=== PATIENT | female | born 1990 | race Caucasian/White ===

== ENCOUNTER → 2018-09-01 15:09 | Outpatient (CLI) | payer MEDICAID, SELFPAY ==
[2018-09-01 14:22] VITALS: BMI 30.7
== END ==
PROVIDERS: Referring Provider Nurse Practitioner Women's Health; Visit Provider Nurse Practitioner Women's Health
DX: Z11.3 Encounter for screening for infections with a predominantly sexual mode of transmission (principal)
CPT/HCPCS: 87491; 87591

== ENCOUNTER → 2018-09-02 16:08 | Outpatient (CLI) | payer MEDICAID, SELFPAY ==
[2018-09-01 14:22] VITALS: BMI 30.7
[2018-09-02 19:27] LABS: Chlamydia Trachomatis by PCR Negative (Negative); Neisserai gonorrhoeae by PCR Negative (Negative); Probe Check PASS; Sample Adequacy Control PASS; Specimen Processing Control PASS
== END ==
PROVIDERS: Referring Provider Nurse Practitioner Women's Health; Visit Provider Nurse Practitioner Women's Health
DX: A64 Unspecified sexually transmitted disease (principal)
CPT/HCPCS: 87491; 87591

== ENCOUNTER → 2018-11-22 11:03 | Outpatient (CLI) | payer BC, MEDICAID, SELFPAY ==
[2018-09-01 14:22] VITALS: BMI 30.7
[2018-11-22 12:38] LABS: Absolute Lymphocyte Count 2.96 X10^3/ul (0.83-4.51); Absolute Neutrophil Count 8.3 X10^3/uL (2.0-7.7); Basophil# 0.05 X10^3/uL; Basophil% 0.4 % (0-1); Eosinophil# 0.19 X10^3/uL; Eosinophils% 1.5 % (0-5); Hematocrit 38.7 % (37-47); Hemoglobin 12.3 g/dl (12.0-15.0); Lymphocyte # 2.96 X10^3/ul (4.0); Lymphocyte % 23.8 % (19-41); Mean Corp Hgb Conc 31.8 g/gl (32-36); Mean Corpuscular Hgb 26.6 pg (27.0-32.0); Mean Corpuscular Volume 83.8 fL (81-99); Monocyte% 7.2 % (0-10); Neutrophil # 8.33 X10^3/uL (2.7-7.7); Neutrophil % 66.9 % (47-70); Platelet Count 465 K/mm3 (150-450); RBC Distribution Width SD 42.1 fl (35.1-43.9); Red Blood Count 4.62 M/mm3 (4.2-5.4); White Blood Count 12.5 K/mm3 (4.4-11.0)
[2018-11-22 12:47] LABS: POSITIVE COUNT NO; POSITIVE DIFFERENTIAL NO; POSITIVE MORPHOLOGY NO
[2018-11-22 12:53] LABS: ALB/GLOB Ratio 0.7 RATIO (0.9-2.4); AST(SGOT) 13 U/L (15-37); Alanine Aminotransfer ALT/SGPT 14 U/L (13-56); Alkaline Phosphatase 96 U/L (45-117); Anion Gap 10 (5-15); BUN 7 mg/dL (7-18); BUN/Creat Ratio 9.3 RATIO (10-20); Calcium,Total 8.9 mg/dL (8.5-10.1); Chloride 106 mmol/L (98-107); Creatinine, Serum 0.75 mg/dL (0.55-1.02); EST Glomerular Filtration Rate 99 mL/min (>60); Est Glom Filt Rate - Afr Amer 119 mL/min (>60); Globulin 4.1 g/dL (2.2-4.2); Glucose 80 mg/dL (74-106); Potassium 3.9 mmol/L (3.5-5.1); Protein, Total 7.1 g/dL (6.4-8.2); Sodium Level 138 mmol/L (136-145); T4 Free Direct 0.96 ng/dL (0.76-1.46); Thyroid Stim Hormone (TSH) 1.82 uIU/mL (0.358-3.74)
== END ==
PROVIDERS: Family Provider Family Medicine; PCP Family Medicine; Visit Provider Family Medicine
DX: Z51.81 Encounter for therapeutic drug level monitoring (principal); F32.9 Major depressive disorder, single episode, unspecified; F41.9 Anxiety disorder, unspecified
CPT/HCPCS: 36415; 80053; 84439; 84443; 85025

== ENCOUNTER → 2019-01-13 09:02 | Outpatient (CLI) | payer MEDICAID, SELFPAY ==
[2018-09-01 14:22] VITALS: BMI 30.7
[2019-01-13 10:16] LABS: Absolute Lymphocyte Count 3.08 X10^3/uL (0.83-4.51); Basophil# 0.11 X10^3/uL; Basophil% 0.8 % (0-1); Eosinophil# 0.16 X10^3/uL; Eosinophils% 1.1 % (0-5); Hemoglobin 12.7 g/dL (12.0-15.0); Lymphocyte # 3.08 X10^3/ul (4.0); Lymphocyte % 21.4 % (19-41); Mean Corp Hgb Conc 31.8 g/dL (32-36); Mean Corpuscular Hgb 27.2 pg (27.0-32.0); Mean Corpuscular Volume 85.7 fL (81-99); Mean Platelet Vol. 9.7 fl (6.2-12.0); Monocyte# 0.99 X10^3/uL; Monocyte% 6.9 % (0-10); NRBC Flagged by Analyzer 0 % (0-5); Neutrophil # 9.99 X10^3/uL (2.7-7.7); Neutrophil % 69.2 % (47-70); Platelet Count 459 K/mm3 (150-450); RBC Distribution Width CV 14.3 % (11.6-14.6); RBC Distribution Width SD 44.3 fl (35.1-43.9); Red Blood Count 4.67 M/mm3 (4.2-5.4); White Blood Count 14.4 K/mm3 (4.4-11.0)
[2019-01-13 11:16] LABS: Thyroid Stim Hormone (TSH) 2.05 uIU/mL (0.358-3.74)
== END ==
PROVIDERS: Family Provider Family Medicine; PCP Family Medicine; Referring Provider Nurse Practitioner Women's Health; Visit Provider Nurse Practitioner Women's Health
DX: L65.9 Nonscarring hair loss, unspecified (principal)
CPT/HCPCS: 36415; 84443; 85025

== ENCOUNTER 2019-03-17 20:43 | Emergency (ER) | payer MEDICAID, SELFPAY ==
[2018-09-01 14:22] VITALS: BMI 30.7
[2019-03-17 20:44] VITALS: BP 172/117; PULSE 138; RESP 18; TEMP 36.6; O2SAT 95; BMI 50.1
--- NOTE | 2019-03-17 21:21 | RAD_ITS ---
HISTORY: COUGH, CONGESTION EXAM: XR Chest 2 Views: COMPARISON: None FINDINGS: # of images incl. paperwork: 2 Lungs are clear. Heart is not enlarged. Bones are normal. Pulmonary vascularity is distinct. No effusions. RAD/Chest PA and Lateral IMPRESSION: Normal. at 2208 Reported and signed by: Krishna Salazar MD Electronically Signed: Krishna Salazar MD at 22:07 EDT Tel , Service support ,
[2019-03-17 21:37] LABS: Absolute Lymphocyte Count 2.81 X10^3/uL (0.83-4.51); Absolute Neutrophil Count 8.1 X10^3/uL (2.0-7.7); Basophil# 0.09 X10^3/uL; Basophil% 0.7 % (0-1); Eosinophil# 0.17 X10^3/uL; Eosinophils% 1.4 % (0-5); Hematocrit 41.2 % (37-47); Lymphocyte # 2.81 X10^3/ul (4.0); Mean Corp Hgb Conc 31.6 g/dL (32-36); Mean Corpuscular Hgb 27.4 pg (27.0-32.0); Mean Corpuscular Volume 86.9 fL (81-99); Mean Platelet Vol. 9.8 fl (6.2-12.0); Monocyte# 0.99 X10^3/uL; Monocyte% 8.1 % (0-10); NRBC Flagged by Analyzer 0 % (0-5); Neutrophil # 8.11 X10^3/uL (2.7-7.7); Neutrophil % 66.3 % (47-70); Platelet Count 457 K/mm3 (150-450); RBC Distribution Width CV 13.6 % (11.6-14.6); RBC Distribution Width SD 43.3 fl (35.1-43.9); Red Blood Count 4.74 M/mm3 (4.2-5.4); White Blood Count 12.2 K/mm3 (4.4-11.0)
[2019-03-17] MEDS: 0.9% Normal Saline 1,000 ML 1000 ML IV (21:38)
[2019-03-17 21:52] LABS: Anion Gap 9 (5-15); BUN 8 mg/dL (7-18); BUN/Creat Ratio 9.6 RATIO (10-20); Calcium,Total 8.9 mg/dL (8.5-10.1); Chloride 105 mmol/L (98-107); Creatinine, Serum 0.83 mg/dL (0.55-1.02); EST Glomerular Filtration Rate 88 mL/min (>60); Est Glom Filt Rate - Afr Amer 106 mL/min (>60); Glucose 141 mg/dL (74-106); Potassium 3.9 mmol/L (3.5-5.1); Sodium Level 138 mmol/L (136-145)
[2019-03-17 22:17] LABS: Bacteria 0 SEEN /hpf (None Seen); Red Blood Cells-Urine 0 SEEN /hpf (0-5)
[2019-03-17 22:34] LABS: Internal QC Validated? YES +Cl - CLEAR BKGD; Pregnancy, Urine Negative Negative
[2019-03-17 22:35] LABS: Color, Urine Yellow (Yellow); Glucose, Dipstick Normal (Normal); Ketone-Dipstick Negative (Negative); Leukocyte Esterase-Dipstick 25 /ul (Negative); Nitrite-Dipstick Negative (Negative); Occult Blood-Urine Negative /ul (Negative); Protein-Dipstick 15 mg/dl (Negative); Urine Bilirubin Dipstick Negative (Negative); Urine Clarity Sl. Cloudy (Clear); Urine Urobilinogen Normal (Normal)
[2019-03-17 22:36] LABS: Squamous Epithelial Cells - UA 0-5 SEEN /hpf (5-10)
[2019-03-17 22:37] LABS: Mucous, Urine RARE /hpf (<or=2+)
[2019-03-17 22:38] LABS: Hyaline Cast 0 SEEN /lpf (0-5); White Blood Cells 0-5 SEEN /hpf (0-5)
[2019-03-17 22:45] VITALS: PULSE 118; RESP 18
--- NOTE | 2019-03-17 23:04 | ED.VISSUMM ---
- ER Visit Summary Date of Service: 03/17/19 Chief Complaint: Shortness of breath History of Present Illness: The patient is a 28 F who presents with shortness of breath that has been getting worse since yesterday. Patient states she has been having a cough. Patient denies any sputum production. Patient admits to some left ear pain. Patient states she has some sharp pain in her chest. Patient states this is worse with coughing. Patient states nothing improves her pain. Patient denies any fevers or chills. Patient denies any rhinorrhea or sore throat. Patient states she has an appoint with her primary care physician for evaluation of her tachycardia this week. Physical Examination: Vital signs are stable except for tachycardia of 118. Patient is afebrile. Patient is in no acute distress. Oral mucosa is pink and moist. Neck is supple. Trachea is midline. There is no JVD noted. Heart was regular and tachycardic. Lungs are clear and equal bilaterally. Abdomen is soft. Bowel sounds are normal. There is no tenderness. Cranial nerves II through XII are intact. There are no focal motor or sensory deficits noted. Test Results: CBC showed a slight leukocytosis of 12.2. Basic metabolic profile was normal. Urinalysis does not show any evidence of urinary tract infection. Urine hCG was negative. PA and lateral chest x-ray was obtained. There is no acute cardiopulmonary process. Emergency Department Course and Treatment: Patient was feeling better on reevaluation. Patient was advised of her results. Patient was instructed to follow-up with her primary care physician in 5 to 7 days. Patient understood and was agreeable with the plan. All questions were answered. Disposition: Discharge home Impression: Viral upper respiratory infection This note was generated with [employer] dictation software. It may contain incorrect words, spelling, and punctuation that were not noted in review of the chart prior to signing ED Disposition - Plan for ED Patient: Disposition: Home or Assisted Living Diagnosis: Viral upper respiratory tract infection with cough Instructions: URI, Viral, No Abx (Adult) Referrals: Kris Patterson MD [Primary Care Provider] - 3-5 Days
[2019-03-17 23:25] VITALS: BP 153/83; PULSE 108; RESP 16; O2SAT 99
== END 2019-03-17 23:25 | disposition home or self-care (01) ==
PROVIDERS: Emergency Provider Emergency Medicine; Family Provider Family Medicine; PCP Family Medicine
DX: J06.9 Acute upper respiratory infection, unspecified (principal); E66.9 Obesity, unspecified
CPT/HCPCS: 71046; 80048; 81001; 81025; 85025; 96360; 99284; J7030; A4216

== ENCOUNTER → 2019-03-21 10:47 | Outpatient (CLI) | payer MEDICAID, SELFPAY ==
[2019-03-17 20:44] VITALS: BMI 50.1
== END ==
PROVIDERS: Family Provider Family Medicine; PCP Family Medicine; Visit Provider Family Medicine
DX: R50.9 Fever, unspecified (principal); R06.2 Wheezing
CPT/HCPCS: 87633

== ENCOUNTER 2019-07-10 21:34 | Emergency (ER) | payer MEDICAID, SELFPAY ==
[2019-07-10 21:35] VITALS: BP 165/112; PULSE 142; RESP 20; TEMP 37.4; O2SAT 98; BMI 49.8
[2019-07-10 21:56] VITALS: BP 164/99; PULSE 138; PULSE 144; RESP 20; TEMP 37.4; O2SAT 96; O2SAT 99
--- NOTE | 2019-07-10 22:04 | EKG12_ITS ---
Test Reason : SOB Blood Pressure : / mmHG Vent. Rate : 123 BPM Atrial Rate : 123 BPM P-R Int : 128 ms QRS Dur : 080 ms QT Int : 304 ms P-R-T Axes : 063 078 041 degrees QTc Int : 435 ms Sinus tachycardia Otherwise normal ECG Confirmed by RHETT GUERRERO, ANDERSON ([id number]), publishing editor LILLY RAMOS ([id number]) on 07/12/2019 8:03:37 AM Referred By: ELIESER/SHINE Confirmed By:ANDERSON DELANEY MD
--- NOTE | 2019-07-10 22:06 | ED.DCSUM_ITS ---
History of Present Illness Informant: Patient Onset: Today Worsened by: Coughing, Exertion Relieved by: Nothing Associated Symptoms: Green sputum, Rhinorrhea, Sweats. Negative for: Fever, Sore throat Narrative: Patient is a 28-year-old female with history of bipolar disorder and tachycardia presenting with shortness of breath. Patient states her shortness of breath started today. She states it worse when she tries to exert herself. She notes the past few days she is had some upper respiratory symptoms including a runny nose and congestion. She notes her sister and her nieces were sick with some upper respiratory symptoms with a did not have any associated respiratory symptoms. Patient does have associated cough with yellow sputum production. She denies any swelling of her legs. She has a history of DVT or PE. Patient states she has discomfort in her chest when she breathes in. She states it feels like when she is breathing and very cold air. She is never had anything like this before. She also feels that there is a creaking sound when she lays flat and breathes. Patient has any other complaints at this time. PE Risk Factors: - - OCP Prior similar symptoms: No Recent Illness/Hospitalization: No <Lavell Lenzdney - Last Filed: 07/11/19 00:30> <Roger Sanchez - Last Filed: 07/11/19 01:46> Chief Complaint: Shortness of Breath Past Medical History Past Medical History: - - Anxiety depression, bipolar disorder Surgical History: - - Ear tubes bilaterally Lives: Alone Smoking Status: Never smoker <Lavell Lenzdney - Last Filed: 07/11/19 00:30> <Roger Sanchez - Last Filed: 07/11/19 01:46> - Allergies and Home Meds Allergies/Adverse Reactions: Allergies No Known Allergies Allergy (Verified 07/10/19 21:35) Primary Care Physician: Kris Patterson MD [Primary Care Provider] - Review of Systems General: Denies: Chills, Fever, Sweats Eyes: Denies: Visual changes - bilaterally, Diplopia ENT: Reports: Rhinorrhea. Denies: Bilateral ear pain, Sore throat Cardiovascular: Reports: Chest pain. Denies: Palpitations Respiratory: Reports: Dyspnea, Cough, Sputum, Dyspnea on exertion Gastrointestinal: Denies: Abdominal pain, Nausea, Vomiting, Diarrhea, Melena, Hematochezia Genitourinary: Denies: Dysuria, Hematuria, Frequency Musculoskeletal: Denies: Back pain, Extremity Pain Skin: Denies: Rash, Wounds Neurological: Denies: Headache, Weakness, Numbness <Lavell Lenzdney - Last Filed: 07/11/19 00:30> Physical Exam Vital Signs/Narrative: Vital Signs Temp Pulse Resp BP Pulse Ox 07/10/19 21:56 99.4 F H 138 H 20 H 164/99 H 99 07/10/19 21:35 99.4 F H 142 H 20 H 165/112 H 98 Inital Vital Signs reviewed: Yes General: Well nourished, Well developed, No Acute Distress Head: Normocephalic, Atraumatic Eyes: Perrl, EOMI ENT: Moist mucous membranes, No rhinorrhea, TM's clear. Negative for: Nasal congestion Neck: Supple, Nontender Cardiovascular: Regular rhythm, No murmurs, Tachycardia Respiratory: No distress, CTA bilaterally, Chest nontender Abdomen: Soft, Nontender, Nondistended, Normal bowel sounds Back: Nontender, Normal Inspection Extremities: Nontender, No edema Skin: Normal color, No rash Neurological: Alert, Oriented x3, Cranial nerves II-XII grossly intact, Normal S trength, Normal Sensation Psychological: Normal affect, Normal Mood, - - Anxious <Lavell Lenzdney - Last Filed: 07/11/19 00:30> Vital Signs/Narrative: Vital Signs Temp Pulse Resp BP Pulse Ox 07/11/19 01:17 118 H 16 130/78 H 98 07/10/19 23:54 130 H 22 H 134/88 H 97 07/10/19 23:16 99.6 F H 134 H 22 H 130/86 H 95 07/10/19 22:38 99.4 F H 133 H 20 H 164/99 H 99 07/10/19 21:56 99.4 F H 138 H 20 H 164/99 H 99 <Roger Sanchez - Last Filed: 07/11/19 01:46> Diagnostic/Tx/Re-eval Chest X-Ray - ED: 2 View, Read by ED Physician, Read by Radiologist, No Acute Disease Clinical Impression(s) from Imaging Studies Chest X-Ray 07/10/19 23:25 IMPRESSION: Normal. at 2337 Reported and signed by: Krishna Salazar MD Electronically Signed: Krishna Salazar MD at 23:36 EST Tel , Service support , Laboratory Data 07/10/19 07/10/19 07/10/19 22:22 22:22 23:02 WBC Cancelled Corrected WBC Cancelled RBC Cancelled Hgb Cancelled Hct Cancelled MCV Cancelled MCH Cancelled MCHC Cancelled RDW Std Deviation Cancelled RDW Coeff of Jonathan Cancelled Plt Count Cancelled MPV Cancelled Immature Gran % (Auto) Cancelled Neut % (Auto) Cancelled Lymph % (Auto) Cancelled [place] % (Auto) Cancelled Eos % (Auto) Cancelled Baso % (Auto) Cancelled Absolute Neuts (auto) Cancelled Absolute Lymphs (auto) Cancelled Total Counted Cancelled Neutrophils % (Manual) Cancelled Band Neutrophils % Cancelled Lymphocytes % (Manual) Cancelled Monocytes % (Manual) Cancelled Eosinophils % (Manual) Cancelled Basophils % (Manual) Cancelled Metamyelocytes % Cancelled Myelocytes % Cancelled Promyelocytes % Cancelled Blast Cells % Cancelled Plasma Cell % (Manual) Cancelled Other Cells % Cancelled Nucleated RBC % Cancelled Nucleated RBCs/100 WBC Cancelled Differential Comment Cancelled Diff Path Review Cancelled Hypersegmented Neuts Cancelled Atypical Lymphocytes Cancelled Reactive Lymphocytes Cancelled Smudge Cells Cancelled Toxic Granulation Cancelled Toxic Vacuolation Cancelled Dohle Bodies Cancelled Natali Rods Cancelled Platelet Estimate Cancelled Plt Morphology Comment Cancelled RBC Morphology Cancelled Polychromasia Cancelled Hypochromasia Cancelled Poikilocytosis Cancelled Basophilic Stippling Cancelled Anisocytosis Cancelled Microcytosis Cancelled Macrocytosis Cancelled Spherocytes Cancelled Sickle Cells Cancelled Target Cells Cancelled Tear Drop Cells Cancelled Ovalocytes Cancelled Stomatocytes Cancelled [place] Bodies Cancelled [place] Cells Cancelled Bite Cells Cancelled Crenated Cell Cancelled Acanthocytes (Spur) Cancelled Rouleaux Cancelled Schistocytes Cancelled D-Dimer Quant (PE/DVT) Cancelled Sodium 139 Potassium 4.1 Chloride 110 H Carbon Dioxide 22.0 Anion Gap 7 BUN 8 Creatinine 1.08 H Estim Creat Clear Calc 68.16 Est GFR (MDRD) Af Amer 78 Est GFR (MDRD) Non-Af 65 BUN/Creatinine Ratio 7.4 L Glucose 108 H Calcium 9.7 Troponin I < 0.015 07/10/19 23:02 WBC 18.1 H Corrected WBC RBC 4.87 Hgb 13.5 Hct 41.8 MCV 85.8 MCH 27.7 MCHC 32.3 RDW Std Deviation 41.4 RDW Coeff of Jonathan 13.5 Plt Count 473 H MPV 9.9 Immature Gran % (Auto) 0.400 Neut % (Auto) 71.5 H Lymph % (Auto) 14.8 L [place] % (Auto) 10.5 H Eos % (Auto) 2.3 Baso % (Auto) 0.5 Absolute Neuts (auto) 13.0 H Absolute Lymphs (auto) 2.68 Total Counted Neutrophils % (Manual) Band Neutrophils % Lymphocytes % (Manual) Monocytes % (Manual) Eosinophils % (Manual) Basophils % (Manual) Metamyelocytes % Myelocytes % Promyelocytes % Blast Cells % Plasma Cell % (Manual) Other Cells % Nucleated RBC % 0 Nucleated RBCs/100 WBC Differential Comment SCANNED Diff Path Review May foll Hypersegmented Neuts Atypical Lymphocytes Reactive Lymphocytes Smudge Cells Toxic Granulation Toxic Vacuolation Dohle Bodies Natali Rods Platelet Estimate Plt Morphology Comment RBC Morphology Polychromasia Hypochromasia Poikilocytosis Basophilic Stippling Anisocytosis Microcytosis Macrocytosis Spherocytes Sickle Cells Target Cells Tear Drop Cells Ovalocytes Stomatocytes [place] Bodies [place] Cells Bite Cells Crenated Cell Acanthocytes (Spur) Rouleaux Schistocytes D-Dimer Quant (PE/DVT) Sodium Potassium Chloride Carbon Dioxide Anion Gap BUN Creatinine Estim Creat Clear Calc Est GFR (MDRD) Af Amer Est GFR (MDRD) Non-Af BUN/Creatinine Ratio Glucose Calcium Troponin I - Rhythm Strip Rhythm Strip: Sinus Tach Rate: 123 Ectopy: None - EKG Initial EKG Interpretation: Sinus Tachycardia, - - Tachycardia at a rate of 123Normal intervalsNormal axisNormal ST segments - Medical Decision Making Patient is evaluated for shortness of breath and pleuritic chest pain started today. She is tachycardic upon arrival. She did have some upper respiratory symptoms for the past 3 to 4 days. Likely this is at URI. Seen. Chest x-rays not show any acute infiltrate. CBC does show significant leukocytosis of 18. Try to show the patient's never had a leukocytosis high. She is also tachycardic. Initially ordered a d-dimer however it clotted off and the patient refused further blood draws. Decision was made to get a CTA to better evaluate her lungs for possible pneumonia that was not seen on chest x-ray as well as a PE. Patient is agreeable with this. Patient did have difficulty with IV access and I ultimately had to place an ultrasound-guided IV in her right AC. Candace ent's BMP is largely unremarkable. Review does show the patient has been tachycardic on prior visits. Patient signed out to night doc to follow final read of CTA. Anticipate discharge home if read is negative or if there is only a small segmental PE. Patient tachycardia does improve with fluids while in the emergency room. <Chayito Lenz - Last Filed: 07/11/19 00:30> - Medical Decision Making . Patient was turned over to dc pending CT results. CT scan of the chest was obtained and was negative for PE or aortic dissection. Patient was advised of her results. Patient was instructed to follow-up with her primary care physician in 5 to 7 days. Patient understood and was agreeable with the plan. All questions were answered. <Roger Sanchez - Last Filed: 07/11/19 01:46> Disposition: Home <Roger aSnchez - Last Filed: 07/11/19 01:46> ED Disposition <Chayito Lenz - Last Filed: 07/11/19 00:30> <Roger Sanchez - Last Filed: 07/11/19 01:46> - Plan for ED Patient: Disposition: Home or Assisted Living Diagnosis: Viral upper respiratory tract infection with cough Instructions: URI, Viral, No Abx (Adult) Referrals: Kris Patterson MD [Primary Care Provider] - 3-5 Days
--- NOTE | 2019-07-10 22:08 | ED.RN ---
NO OLD EKG'S
--- NOTE | 2019-07-10 22:34 | ED.RN ---
Marco SMITH was able to obtain some blood, no IV. He is now sing ultrasound to attempt IV placement.
[2019-07-10 22:38] VITALS: BP 164/99; PULSE 133; RESP 20; TEMP 37.4; O2SAT 99
[2019-07-10 22:51] LABS: Anion Gap 7 (5-15); BUN 8 mg/dL (7-18); BUN/Creat Ratio 7.4 RATIO (10-20); Calcium,Total 9.7 mg/dL (8.5-10.1); Chloride 110 mmol/L (98-107); Creatinine, Serum 1.08 mg/dL (0.55-1.02); EST Glomerular Filtration Rate 65 mL/min (>60); Est Glom Filt Rate - Afr Amer 78 mL/min (>60); Estimated Creatinine Clearance 68.16 ml/min; Glucose 108 mg/dL (74-106); Potassium 4.1 mmol/L (3.5-5.1); Sodium Level 139 mmol/L (136-145)
[2019-07-10 23:16] VITALS: BP 130/86; PULSE 134; RESP 22; TEMP 37.6; O2SAT 95
[2019-07-10] MEDS: 0.9% Normal Saline 1,000 ML 999 ML IV (23:17)
--- NOTE | 2019-07-10 23:25 | RAD_ITS ---
HISTORY: Sick since , SOB EXAM: XR Chest 2 Views: COMPARISON: March 17, 2019 FINDINGS: # of images incl. paperwork: 2 Lungs are clear. Heart is not enlarged. No acute osseous pathology perceived. Pulmonary vascularity is distinct. No effusions. RAD/Chest PA and Lateral IMPRESSION: Normal. at 2337 Reported and signed by: Krishna Salazar MD Electronically Signed: Krishna Salazar MD at 23:36 EST Tel , Service support ,
[2019-07-10 23:32] LABS: Absolute Lymphocyte Count 2.68 X10^3/uL (0.83-4.51); Basophil# 0.09 X10^3/uL; Basophil% 0.5 % (0-1); Eosinophil# 0.42 X10^3/uL; Eosinophils% 2.3 % (0-5); Hematocrit 41.8 % (37-47); Hemoglobin 13.5 g/dL (12.0-15.0); Lymphocyte # 2.68 X10^3/ul (4.0); Lymphocyte % 14.8 % (19-41); Mean Corp Hgb Conc 32.3 g/dL (32-36); Mean Corpuscular Hgb 27.7 pg (27.0-32.0); Mean Corpuscular Volume 85.8 fL (81-99); Mean Platelet Vol. 9.9 fl (6.2-12.0); Monocyte# 1.91 X10^3/uL; Monocyte% 10.5 % (0-10); NRBC Flagged by Analyzer 0 % (0-5); Neutrophil # 12.96 X10^3/uL (2.7-7.7); Neutrophil % 71.5 % (47-70); POSITIVE DIFFERENTIAL YES; Platelet Count 473 K/mm3 (150-450); RBC Distribution Width CV 13.5 % (11.6-14.6); RBC Distribution Width SD 41.4 fl (35.1-43.9); Red Blood Count 4.87 M/mm3 (4.2-5.4); White Blood Count 18.1 K/mm3 (4.4-11.0)
[2019-07-10 23:38] LABS: Differential Indicated SCAN CRITERIA MET
[2019-07-10 23:53] LABS: Differential Comment SCANNED
[2019-07-10 23:54] VITALS: BP 134/88; PULSE 130; RESP 22; O2SAT 97
--- NOTE | 2019-07-10 23:54 | ED.RN ---
marketing technology specialist x 2 tried to obtain blue top, unable.
--- NOTE | 2019-07-11 00:03 | CT_ITS ---
HISTORY: SOB SINCE THURSDAY, HX HTN TECHNIQUE: Helically acquired images were obtained of the chest following the intravenous administration of 97 ML of Isovue 300 Iodinated contrast. as per pulmonary angiogram protocol with 2D MIP reconstructions. A radiation dose optimization technique was used for this scan. COMPARISON: Chest x-ray from one hour earlier FINDINGS: # of images incl. paperwork: 1194 Lungs are clear minimal bronchial wall thickening within the right middle lobe, the right lower lobe, and the left lower lobe. No effusions. Within the thoracic spinebony alignment is normal. Vertebral body height is normal. Facets are well aligned. No rib lesions are perceived. Heart is not enlarged. Thoracic aorta is normal. No aneurysms, stenoses, dissections, nor occlusions. Minimal mediastinal lymph nodes possibly adenopathy No pulmonary emboli. Visualized portions of the upper abdomen are without identified acute pathology. CT/CTA Chest W/WO Contrast IMPRESSION: No pulmonary embolism, aortic aneurysm, or aortic dissection. Borderline mediastinal adenopathy without evidence of pneumonia. Bronchial wall thickening within the right middle lobe and both lower lobes suggestive of bronchitis Individualized dose optimization techniques were used for this CT. at 0058 Reported and signed by: Krishna Salazar MD Electronically Signed: Krishna Salazar MD at 0:57 EST Tel , Service support ,
[2019-07-11 01:17] VITALS: BP 130/78; PULSE 118; RESP 16; O2SAT 98
[2019-07-11 02:01] VITALS: BP 140/78; PULSE 120; RESP 16; O2SAT 98
[2019-07-11 14:03] LABS: Pathologist Review Reviewed
== END 2019-07-11 02:02 | disposition home or self-care (01) ==
PROVIDERS: Emergency Provider Emergency Medicine; PCP Family Medicine
DX: J06.9 Acute upper respiratory infection, unspecified (principal); F31.9 Bipolar disorder, unspecified; I10 Essential (primary) hypertension; Z86.718 Personal history of other venous thrombosis and embolism
CPT/HCPCS: 71046; 71275; 80048; 84484; 85025; 87804; 93005; 96360; 99285; J7030; Q9967; A4216

== ENCOUNTER → 2020-12-11 09:22 | Outpatient (CLI) | payer BC, SELFPAY ==
[2020-12-11 08:48] VITALS: BMI 51.2
[2020-12-11 10:39] LABS: HIV - WCH Non-Reactive (Nonreactive); Hepatitis B Surface Antigen Non-Reactive (Nonreactive); Hepatitis C Antibody Non-Reactive (Nonreactive); Syphilis Antibodies Non-reactive
[2020-12-12 14:18] LABS: HSV 1 IgG 2.73 index (0.00-0.90); HSV 2 IgG < 0.91 index (0.00-0.90)
[2020-12-12 20:10] LABS: Chlamydia By Nucleic Acid AMP Negative (Negative)
[2020-12-13 15:29] LABS: HPV Reflexed? NOT INDICATED
[2020-12-13 16:01] LABS: Gonococcus By Nucleic Acid AMP Negative (Negative)
== END ==
PROVIDERS: PCP Family Medicine; Referring Provider Nurse Practitioner Women's Health; Visit Provider Nurse Practitioner Women's Health
DX: Z20.2 Contact with and (suspected) exposure to infections with a predominantly sexual mode of transmission (principal); Z12.4 Encounter for screening for malignant neoplasm of cervix; Z11.3 Encounter for screening for infections with a predominantly sexual mode of transmission
CPT/HCPCS: 36415; 86695; 86696; 86703; 86780; 86803; 87340; 87491; 87591; 88175; G0145

== ENCOUNTER 2021-01-31 07:21 | Emergency (ER) | payer OTHER, SELFPAY ==
[2021-01-31 07:22] VITALS: BP 182/117; PULSE 101; RESP 16; TEMP 36.4; O2SAT 100; BMI 47.2
--- NOTE | 2021-01-31 07:30 | EDS_ITS ---
HPI HPI - URI History of Present Illness Chief Complaint: Ear Problem Informant: patient Onset/Context/Timing Onset: Month(s) Context: Gradual Onset Timing: Continuous Quality: Aching and stabbing at times Location: Left ear Worsened by: - (Pressure to the left ear) Relieved by: - (Nothing) Associated Symptoms Associated Symptoms: Positive for Headache; Negative for Nasal Congestion, Sinus Pressure, Myalgias, Nausea, Vomiting, Diarrhea, Shortness of Breath, Chest Pain, Nonproductive cough, Hemoptysis and Productive Cough Narrative Narrative: Patient presents with left ear pain that has been constant for the past couple months. Patient states it is aching and stabbing. Patient states she has been on 3 courses of antibiotics for this. Patient states she was prescribed Cipro eardrops with no improvement. Patient states she is currently on Keflex. Patient has seen her primary care physician for this but has not seen an ear nose and throat physician for this. Patient admits to some drainage from the left ear. Patient denies any fevers or chills. ROS [facility] ED Constitutional Constitutional ED: Denies chills or fever(s) Eyes Eyes: Denies blurry vision or change in vision ENT ENT ED: Denies rhinorrhea or sore throat Cardiovascular Cardiovascular: Denies chest pain or palpitations Respiratory/Chest Respiratory/Chest: Denies cough or dyspnea Gastrointestinal Gastrointestinal: Denies nausea or vomiting Genitourinary Genitourinary ED: Denies dysuria or hematuria Musculoskeletal Musculoskeletal: Denies back pain or neck pain Integumentary Denies abscess or rash Neurologic Neurologic: Reports headache(s); Denies weakness Allergic/Immunologic Allergic/Immunologic ED: Denies mouth swelling or urticaria [facility] Medical History Anxiety Bipolar 1 disorder Depression Home Medications trazodone 100 mg tablet 100 mg PO QHS PRN 08/25/18 [History Last Taken Unknown] fluvoxamine 50 mg PO DAILY 07/10/19 [History Last Taken Unknown] aripiprazole 5 mg tablet 15 mg PO DAILY tab 12/11/20 [History Last Taken Unknown] propranolol 20 mg tablet 20 mg PO BID 12/11/20 [History Last Taken Unknown] levonorgestrel-ethinyl estradiol 0.1 mg-20 mcg tablet 1 tab PO QDAY #84 tab 01/01/21 [Rx Last Taken Unknown] ciprofloxacin-hydrocortisone [Cipro HC] 3 drp EACH EAR BID 7 Days #10 ml 01/31/21 [Rx Last Taken Unknown] Allergy/AdvReac Type Severity Reaction Status Date / Time ciprofloxacin Allergy Hives Verified 01/31/21 07:24 Family History Grandmother Diabetes Heart disease Grandfather Heart disease Surgical History History of placement of ear tubes History of tonsillectomy Social History household members: significant other current occupational status: employed current occupation: [employer] history of recent travel: Yes sexually active: Yes Smoking Status: Current every day smoker tobacco type: cigarettes alcohol intake: current alcohol intake frequency: a few times a week substance use type: does not use caffeine: Yes Type: coffee Number of servings: 2 what type of physical activity do you participate in: none seatbelt use: always do you feel safe at home: Yes additional social history: single EXAM Physical Exam Const Vital Signs: 01/31/21 07:22 Temperature 97.5 F L Temperature Source Temporal Pulse Rate 101 H Respiratory Rate 16 Blood Pressure 182/117 H Blood Pressure Mean 138 Pulse Ox 100 Oxygen Delivery Method Room Air Positive well nourished, well developed and obese General Appearance ED: well developed Nutritional Appearance: obese HEENT HEENT Narrative: There is no tenderness over the mastoid process. There is no erythema. normocephalic and atraumatic External Ear: external ears normal External Auditory Canal: EAC's abnormal left erythema, edema and tenderness Tympanic Membrane ED: Yes TM's clear bilateral and other There is a tympanostomy tube noted in the left tympanic membrane. Eyes PERRL and EOMs intact bilaterally Neck supple and no JVD General: lymphadenopathy anterior cervical (Left) Neuro oriented x3, CN's II-XII intact bilaterally and no sensory deficits noted Sensorium / Orientation: alert Motor Exam: strength 5/5 throughout Psych mental status grossly normal MDM MDM MDM Narrative Medical decision making narrative: Patient states she has an allergy to Cipro but that is only when she takes it orally. Patient was given a prescription for Cipro HC. Patient was instructed to continue her Keflex. Patient was given referral for ENT. Patient was instructed to follow-up with her primary care physician in 3 to 5 days. Patient was also instructed to follow-up with ENT in 3 to 5 days. Patient understood and was agreeable with the plan. All questions were answered. Discharge Plan Triage Chief Complaint: Ear Problem ED Provider: Roger Sanchez Dx/Rx/DC Orders Clinical Impression: Acute otitis externa of left ear Instructions: ED External Ear Infection (Adult) Prescriptions: New Cipro HC 0.2-1 % drops,suspension 3 drp EACH EAR BID 7 Days Qty: 10 RF: 0 No Action trazodone 100 mg tablet 100 mg PO QHS PRN (Reason: Insomnia) RF: 0 aripiprazole [Abilify] 5 mg tablet 15 mg PO DAILY RF: 0 propranolol 20 mg tablet 20 mg PO BID RF: 0 levonorgestrel-ethinyl estrad [Aviane] 0.1-20 mg-mcg tablet 1 tab PO QDAY Qty: 84 RF: 4 fluvoxamine 50 MG tablet 50 mg PO DAILY RF: 0 Primary Care Provider: Kris Patterson Referrals: Jake Argueta MD [STAFF PHYSICIAN] - 3-5 Days Kris Patterson MD [Primary Care Provider] - 3-5 Days Disposition Disposition: Home, Self Care Discharge Date/Time: 01/31/21 08:23
== END 2021-01-31 08:23 | disposition home or self-care (01) ==
PROVIDERS: Emergency Provider Emergency Medicine; PCP Family Medicine
DX: H60.502 Unspecified acute noninfective otitis externa, left ear (principal); F17.210 Nicotine dependence, cigarettes, uncomplicated; Z79.3 Long term (current) use of hormonal contraceptives; E66.9 Obesity, unspecified; F31.9 Bipolar disorder, unspecified; F41.9 Anxiety disorder, unspecified
CPT/HCPCS: 99282